=== PATIENT | female | born 1990 | race Caucasian/White ===

== ENCOUNTER 2017-01-18 16:04 | Emergency (ER) | payer OTHER ==
[2017-01-18 16:12] VITALS: BP 121/73; PULSE 93; TEMP 98; BMI 28.3
--- NOTE | 2017-01-18 17:00 | PDOC ---
History of Present Illness - General Chief Complaint: Lightheaded Stated Complaint: SYNCOPE/NEAR SYNCOPE Time Seen by Provider: 01/18/17 16:43 History Source: Patient - History of Present Illness Presenting Symptoms: Nausea, Near-Syncope Timing/Duration: reports: intermittent Past History - Past Medical History Allergies/Adverse Reactions: Allergies Allergy/AdvReac Type Severity Reaction Status Date / Time No Known Allergies Allergy Verified 01/18/17 16:12 Home Medications: Ambulatory Orders NK [No Known Home Medication] 01/18/17 Other medical history: NONE - Psycho/Social/Smoking Cessation Hx Anxiety: No Suicidal Ideation: No Smoking History: Never smoked Hx Alcohol Use: Yes (social) Drug/Substance Use Hx: No Substance Use Type: None Review of Systems - Review of Systems Constitutional: No: Chills, Fever HEENTM: No: Blurred Vision Respiratory: No: Shortness of Breath Cardiac (ROS): No: Chest Pain ABD/GI: Yes: Nausea. No: Vomiting Neurological: No: Headache, Seizure, Dizziness *Physical Exam - Vital Signs Last Vital Signs Temp Pulse Resp BP Pulse Ox 98.0 F 93 H 20 121/73 100 01/18/17 16:09 01/18/17 16:09 01/18/17 16:09 01/18/17 16:09 01/18/17 16:09 - Physical Exam General Appearance: Yes: Appropriately Dressed. No: Apparent Distress HEENT: positive: Normal Voice Neck: positive: Supple Respiratory/Chest: positive: Lungs Clear, Normal Breath Sounds. negative: Respiratory Distress Cardiovascular: positive: Regular Rate, S1, S2 Gastrointestinal/Abdominal: positive: Soft. negative: Tender Extremity: positive: Normal Inspection Integumentary: positive: Dry, Warm Neurologic: positive: Fully Oriented, Alert, Normal Mood/Affect, Motor Strength 5/5, Responsive Heart Score/ECG Review - ECG Intrepretation Comment:: 01/18/17 17:48 Twelve-lead EKG was performed and reviewed by me. There is normal sinus rhythm with a normal rate. The axis is normal. The intervals are normal. There are no ST or T wave abnormalities. Impression: Normal twelve-lead EKG ED Treatment Course - LABORATORY CBC & Chemistry Diagram: 01/18/17 17:02 01/18/17 17:02 - ADDITIONAL ORDERS Additional order review: Laboratory Results 05/01/18/17 01/18/17 17:41 17:02 17:02 Sodium 140 Potassium 3.9 Chloride 103 Carbon Dioxide 27 Anion Gap 10 BUN 11 Creatinine 0.6 Creat Clearance w eGFR > 60 Random Glucose 93 Calcium 9.1 Total Bilirubin 0.2 AST 33 ALT 43 Alkaline Phosphatase 60 Creatine Kinase 33 Troponin I < 0.02 Total Protein 7.0 Albumin 3.4 Urine Color Yellow Urine Appearance Clear Urine pH 7.0 Urine Protein Negative Urine Glucose (UA) Negative Urine Ketones Negative Urine Blood Negative Urine Nitrite Negative Urine Bilirubin Negative Urine Urobilinogen Negative Ur Leukocyte Esterase Negative Urine HCG, Qual Negative 01/18/17 17:02 RBC 4.22 MCV 89.9 MCHC 33.0 RDW 13.6 MPV 8.4 Neutrophils % 78.9 Lymphocytes % 15.8 Monocytes % 4.7 Eosinophils % 0.2 Basophils % 0.4 - RADIOLOGY Radiology Studies Ordered: Category Date Time Status HEAD CT WITHOUT CONTRAST [CT] Stat CT Scan 01/18/17 17:00 Completed Medical Decision Making - Medical Decision Making 01/18/17 16:52 26 yo F, h/o vasovagal syncope w/ neg w/u in the past, presents w/ recurrent syncope. Patient reports that after a year of no syncopal events, she passed out yesterday morning while getting dressed for work. States prior to syncope, she felt weak and next thing she remembers in waking up on the floor. States she was able to see her PMD, Dr Hi Salvador, who did basic labs and "check my carotids" as per pt and referred her to see a cardioloigist. [facility] is a/w insurance to approve CT head which she has not had yet. Returns today because she "almost passed out" at home today. States she was cooking this afternoon and suddenly felt weak so turned off stove and sat down when she began feeling nauseous and became very diaphoretic. States she might have "peed" on herself but states she was awake and aware of this. No e/o seizures on prior w/u per pt. Pt states syncope/near syncope yesterday and today was different than past syncopal events in that prior syncope was associated w/ seeing "black and white " prior to passing out. Pt baseline now. No OLIVER, dizziness, visual changes, focal weakness, CP or SOB See exam Recurrent syncope Neg w/u in past and dx w/ vasovagal synocope Stable and well rishi w/ no focal neuro deficits Currently undergoing w/u with Dr Salvador and schedule for cards f/u -will discuss dispo w/ MD 01/18/17 17:06 01/18/17 17:17 Case d/w PMD who recommends CT head in ED pmd if w/u neg, pt to be discharged to f/u with MD tomorrow in office 01/18/17 17:48 01/18/17 19:11 CTH negative. pt remains stable in ED w/ no witnessed syncope. Will dc to f/u with PMD *DC/Admit/Observation/Transfer Diagnosis at time of Disposition: Syncope Qualifiers: Syncope type: unspecified Qualified Code(s): R55 - Syncope and collapse - Discharge Dispostion Disposition: HOME Condition at time of disposition: Good - Referrals Referrals: Hi Salvador MD [Primary Care Provider] - - Patient Instructions Printed Discharge Instructions: DI for Syncope in Adults (Fainting) Additional Instructions: Your CT was negative today. Please follow up with Dr Salvador in office at 1pm tomorrow - Post Discharge Activity Work/School Note: Back to Work
[2017-01-18 17:16] LABS: BASOPHIL 0.4 % (0-2.0); EOSINOPHIL 0.2 % (0-4.5); MCH 29.7 pg (25.7-33.7); MEAN CELL VOLUME 89.9 fl (80-96); MEAN PLT VOLUME 8.4 fl (7.5-11.1); NEUTROPHILS 78.9 % (42.8-82.8); PLATELET COUNT 218 K/MM3 (134-434); RDW 13.6 % (11.6-15.6); WHITE BLOOD COUNT 9.5 K/mm3 (4.0-10.0)
[2017-01-18 17:43] LABS: ALBUMIN 3.4 g/dl (3.4-5.0); ALK PHOS 60 U/L (45-117); ANION GAP 10 (8-16); BILIRUBIN,TOTAL 0.2 mg/dL (0.2-1.0); CALCIUM 9.1 mg/dL (8.5-10.1); CO2 27 mmol/L (21-32); CREATININE 0.6 mg/dL (0.55-1.02); GLUCOSE,RANDOM 93 mg/dL (74-106); SGOT/AST 33 U/L (15-37); SGPT/ALT 43 U/L (12-78)
[2017-01-18 17:44] LABS: TROPONIN I < 0.02 ng/ml (0.00-0.05)
[2017-01-18 18:07] LABS: URINE APPEARANCE CLEAR; URINE BILIRUBIN NEGATIVE (NEGATIVE); URINE BLOOD NEGATIVE (NEGATIVE); URINE COLOR YELLOW; URINE GLUCOSE (UA) NEGATIVE (NEGATIVE); URINE KETONE NEGATIVE (NEGATIVE); URINE LEUK ESTERASE NEGATIVE (NEGATIVE); URINE NITRITE NEGATIVE (NEGATIVE); URINE PROTEIN NEGATIVE (NEGATIVE); URINE UROBILINOGEN NEGATIVE E.U./dl (0.2-1.0)
--- NOTE | 2017-01-19 13:07 | EKG ---
Test Reason : Blood Pressure : / mmHG Vent. Rate : 075 BPM Atrial Rate : 075 BPM P-R Int : 144 ms QRS Dur : 074 ms QT Int : 362 ms P-R-T Axes : 052 069 043 degrees QTc Int : 404 ms NORMAL SINUS RHYTHM NORMAL ECG NO PREVIOUS ECGS AVAILABLE Confirmed by ASHLEY WANG MD ([id number]) on 01/19/2017 1:07:27 PM Referred By: Confirmed By:ASHLEY WANG MD
== END 2017-01-18 19:16 | disposition home or self-care (01) ==
LOC: JER 16:04
DX: R55 Syncope and collapse (principal)
CPT/HCPCS: 36415; 70450-TC; 80053; 81003; 82550; 84484; 84703; 85025; 93005; 93010; 99281-25